=== PATIENT | female | born 1995 | race Caucasian/White ===

== ENCOUNTER 2018-10-23 11:46 | Emergency (ER) | payer OTHER ==
[~2018-10-23] VITALS: Ht 154.9 cm; Wt 56.7 kg
[2018-10-23] MEDS ORDERED: TRAMADOL 50 MG50 MG PO (13:31)
[2018-10-23 13:49] VITALS: BP 113/83
== END 2018-10-23 13:50 | disposition home or self-care (01) ==
LOC: ER 11:46
DX: S82.032A Displaced transverse fracture of left patella, initial encounter for closed fracture (principal); W01.0XXA Fall on same level from slipping, tripping and stumbling without subsequent striking against object, initial encounter; Y92.239 Unspecified place in hospital as the place of occurrence of the external cause; Y93.89 Activity, other specified; Y99.8 Other external cause status